=== PATIENT | male | born 1985 | race Two or more races ===

== ENCOUNTER 2017-04-08 07:36 | Day surgery (SDC) | payer OTHER ==
[2017-04-08] MEDS ORDERED: ceFAZolin 2 GM/50 ML 50 ML IV ONE (07:37)
[2017-04-08] MEDS ORDERED: LACTATED RINGERS 1,000 ML IV ONE ×2 (08:00→10:58)
[2017-04-08] MEDS ORDERED: GLYCOPYRROLATE 1 MG/5 ML VIAL IVP ONE (08:45)
[2017-04-08] MEDS ORDERED: NEOSTIGMINE 1 MG/1 ML 10 ML MDV IVP ONE (08:45)
[2017-04-08] MEDS ORDERED: DEXAMETHASONE 4 MG/ML VIAL IVP ONE (08:45)
[2017-04-08] MEDS ORDERED: ROCURONIUM 50 MG/5 ML VIAL IVP ONE (08:45)
[2017-04-08] MEDS ORDERED: SUCCINYLCHOLINE 200 MG/10 ML VIAL IVP ONE (08:45)
[2017-04-08] MEDS ORDERED: MIDAZOLAM 2 MG/2 ML VIAL IVP ONE (08:45)
[2017-04-08] MEDS ORDERED: fentaNYL 100 MCG/2 ML VIAL IVP ONE (08:45)
[2017-04-08] MEDS ORDERED: KETOROLAC 30 MG/ML VIAL IVP ONE (08:45)
[2017-04-08] MEDS ORDERED: ONDANSETRON 4 MG/2 ML VIAL IVP ONE (08:45)
[2017-04-08] MEDS ORDERED: LIDOCAINE-MPF 2% 5 ML VIAL IM ONE (08:45)
[2017-04-08] MEDS ORDERED: PROPOFOL 200 MG/20 ML VIAL IVP ONE (08:45)
[2017-04-08] MEDS ORDERED: BUPIVACAINE 0.5% PF 30 ML VIAL SUBQ ONE (09:13)
[2017-04-08 12:06] VITALS: BP 130/60
--- NOTE | 2017-04-10 07:28 | OPERATIVE REPORT ---
DATE OF SURGERY: 04/08/2017 00:00:00 SURGEON: Yojana Landrum MD. PREOPERATIVE DIAGNOSIS: Bilateral inguinal hernias. POSTOPERATIVE DIAGNOSIS: Bilateral inguinal hernias. INDICATION FOR PROCEDURE: This is a 31-year-old male who presented to my office electively for consultation for a painful left inguinal hernia and on physical exam he was noted to have bilateral inguinal hernias. FINDINGS: After obtaining informed consent from the patient, he was brought into the operating room and positioned on the operating table in the supine position, taking note of pressure points. The patient was intubated by Anesthesia. He was administered 2 grams of Ancef. He was then prepped and draped in the usual sterile fashion. A timeout was taken according to protocol. A 1 cm incision was created below the umbilicus in a transverse fashion. This was deepened down the anterior rectus sheath. This was incised with a 15 blade and extended with Metzenbaum. The underlying rectus muscles were visualized. A tonsil clamp was placed to retract the rectus muscles laterally and the surgeon' s finger was inserted and blunt dissection was performed in the retrorectal space. The dissecting balloon was then inserted in the rectorectal space and the space was inflated under direct visualization. The dissecting balloon was then exchanged for the operative balloon. The rectorectal space was entered and no bleeding was noted. Attention was then placed to the patient's left groin. The filmy tissue overlying the pubic bone in the midline was cleared from the pubic bone. I then worked my way lateral to medial peeling the peritoneum off the left lateral abdominal wall and working my way towards the cord structures. A small indirect hernia was observed in this location and this was easily reduced. The direct space additionally contained a small direct hernia, which was also easily reduced. The peritoneum was completely peeled away from both the anterior abdominal wall and the cord structures, completely reducing both hernias. Cremasteric fibers were divided with electrocautery when necessary. I then turned by attention to the patient's right groin and this was dissected in a similar fashion. The remaining areolar tissue was dissected off of the pubic bone in the midline. Again, I worked my way lateral to medial, peeling the peritoneum down off the lateral abdominal wall. Some of the muscular fibers on the anterior wall needed to be divided to create the space. He again had both small indirect hernia component, as well as a small direct hernia component. The hernia sac was peeled off of the cord structures, reducing the indirect hernia and the direct sac was similarly dissected off the anterior abdominal wall medial to the epigastric vessels. The peritoneum then was noted to lay completely flat. I then selected a large left-sided Bard mesh of medium weight and inserted this into the rectorectal space. This was positioned to appropriately cover both the indirect and direct spaces, as well as the femoral space. The medial aspect was tacked just above the pubic bone in the midline and the lateral aspect of the mesh was tacked to the lateral abdominal wall ensuring adequate placement by contralateral external hand compression to the lateral abdominal wall. The right mesh was then rolled upon itself and inserted into the rectorectal space. This was also positioned to appropriately cover the indirect, direct, and femoral spaces. This mesh was also tacked medially just above the pubic bone, as well as laterally with contralateral palpation of the surgeon's hand. The mesh was noted to be lying in adequate position. The space was then allowed to desufflate under visualization and to ensure no rolling of the inferior aspect of the mesh. The ports were then removed. The umbilical fascial incision was closed with running 0 Vicryl, and 30 mL of local anesthetic was then infiltrated, and the skin incisions were closed with 4-0 Monocryl and Dermabond was applied. The patient was extubated and taken to the recovery room in stable condition. ESTIMATED BLOOD LOSS: 10 mL. COMPLICATIONS: None. SPECIMENS: None. JOB #: [id number] EXT JOB #:[id number] DENICE
== END 2017-04-08 07:37 | disposition home or self-care (01) ==
LOC: SDS 07:36
PROVIDERS: ATTEND Surgery
PROC: 0YUA4JZ Supplement Bilateral Inguinal Region with Synthetic Substitute, Percutaneous Endoscopic Approach (ICD-10-PCS; principal; 2017-04-08 09:00)
DX: K40.20 Bilateral inguinal hernia, without obstruction or gangrene, not specified as recurrent (principal)
CPT/HCPCS: 49650; C1781; J0690; J7120